=== PATIENT | female | born 1960 | race Caucasian/White ===

== ENCOUNTER 2020-05-31 12:42 | Emergency (ER) | payer MEDICARE, OTHER | END 2020-05-31 15:37 | disposition home or self-care (01) | LOC: ER1 12:42 | DX: S93.401A Sprain of unspecified ligament of right ankle, initial encounter (principal); I10 Essential (primary) hypertension; Z88.2 Allergy status to sulfonamides; W19.XXXA Unspecified fall, initial encounter; Y92.009 Unspecified place in unspecified non-institutional (private) residence as the place of occurrence of the external cause | CPT/HCPCS: 73610; 99283 ==

== ENCOUNTER → 2020-10-23 | Outpatient (CLI) | payer MEDICARE, OTHER | LOC: RAD 13:17 | DX: M54.5 Low back pain (principal); M51.36 Other intervertebral disc degeneration, lumbar region | CPT/HCPCS: 72110 ==

== ENCOUNTER → 2020-11-26 | Outpatient (CLI) | payer MEDICARE, OTHER | LOC: RAD 12:54 | DX: M25.552 Pain in left hip (principal) | CPT/HCPCS: 73502 ==

== ENCOUNTER → 2020-12-16 | Outpatient (CLI) | payer MEDICARE, OTHER | LOC: EMI 10:43 | DX: M51.36 Other intervertebral disc degeneration, lumbar region (principal); M47.816 Spondylosis without myelopathy or radiculopathy, lumbar region; M47.817 Spondylosis without myelopathy or radiculopathy, lumbosacral region; M48.061 Spinal stenosis, lumbar region without neurogenic claudication | CPT/HCPCS: 72148 ==

== ENCOUNTER → 2021-06-10 | Outpatient (CLI) | payer MEDICARE, OTHER ==
[2021-06-11 07:10] LABS: A/G RATIO 1.8 (1.2-2.2); ALKALINE PHOSPHATASE, S 131 IU/L (44-121); ALT (SGPT) 57 IU/L (0-32); AST (SGOT) 53 IU/L (0-40); BILIRUBIN, TOTAL 0.3 mg/dL (0.0-1.2); BUN 9 mg/dL (8-27); BUN/CREATININE RATIO 15 (12-28); CALCIUM, SERUM 9.7 mg/dL (8.7-10.3); CARBON DIOXIDE, TOTAL 21 mmol/L (20-29); CHLORIDE, SERUM 101 mmol/L (96-106); CHOLESTEROL, TOTAL 235 mg/dL (100-199); CREATININE, SERUM 0.61 mg/dL (0.57-1.00); EGFR IF AFRICN AM 113 (>59); EGFR IF NONAFRICN AM 98 (>59); GLOBULIN, TOTAL 2.6 g/dL (1.5-4.5); GLUCOSE, SERUM 75 mg/dL (65-99); HDL CHOLESTEROL 111 mg/dL (>39); LDL CHOLESTEROL CALC 109 mg/dL (0-99); POTASSIUM, SERUM 4.2 mmol/L (3.5-5.2); PROTEIN, TOTAL, SERUM 7.4 g/dL (6.0-8.5); SODIUM, SERUM 141 mmol/L (134-144); T. CHOL/HDL RATIO 2.1 ratio (0.0-4.4); TRIGLYCERIDES 90 mg/dL (0-149); VITAMIN D, 25-HYDROXY 32.3 ng/mL (30.0-100.0)
[2021-06-11 08:13] LABS: TSH 0.678 uIU/mL (0.450-4.500)
== END ==
LOC: LAB 12:40
PROVIDERS: Family Medicine
DX: I10 Essential (primary) hypertension (principal); E78.5 Hyperlipidemia, unspecified; E55.9 Vitamin D deficiency, unspecified
CPT/HCPCS: 36415; 80053; 80061; 84443

== ENCOUNTER → 2021-09-01 | Outpatient (CLI) | payer MEDICARE, OTHER | LOC: MAMO 08-14 13:00 | DX: Z12.31 Encounter for screening mammogram for malignant neoplasm of breast (principal) | CPT/HCPCS: 77063; 77067 ==

== ENCOUNTER → 2021-09-22 | Outpatient (CLI) | payer MEDICARE, OTHER | LOC: MAMO 13:34 | DX: R92.8 Other abnormal and inconclusive findings on diagnostic imaging of breast (principal); N64.1 Fat necrosis of breast | CPT/HCPCS: 76641; 77066; G0279 ==

== ENCOUNTER → 2021-12-15 | Outpatient (CLI) | payer MEDICARE, OTHER ==
[2021-12-15 10:37] LABS: RED BLOOD COUNT 4.61 M/UL (4.00-5.10); WHITE BLOOD COUNT 5.1 K/UL (4.5-11.0)
[2021-12-15 11:08] LABS: BUN/CREATININE RATIO 23 (0-10)
== END ==
LOC: LAB 10:02
PROVIDERS: Family Medicine
DX: E78.5 Hyperlipidemia, unspecified (principal)
CPT/HCPCS: 36415; 80053; 80061; 84443; 85025